=== PATIENT | male | born 1990 | race Caucasian/White ===

== ENCOUNTER 2016-07-31 14:51 | Inpatient (IN) | payer OTHER ==
[2016-07-31 16:28] VITALS: BMI 34.0
--- NOTE | 2016-07-31 18:32 | HP ---
CIWA Score - CIWA Score Nausea/Vomitin Muscle Tremors: 5 Anxiety: 4-Mod. Anxious/Guarded Agitation: 4-Moderately Restless Paroxysmal Sweats: 2 Orientation: 0-Oriented Tacttile Disturbances: 0-None Auditory Disturbances: 0-None Visual Disturbances: 3-Moderate Sensitivity Headache: 0-None Present CIWA-Ar Total Score: 20 Admission ROS BHS - HPI Chief Complaint: WITHDRAWAL SX Allergies/Adverse Reactions: Allergies Allergy/AdvReac Type Severity Reaction Status Date / Time No Known Allergies Allergy Verified 07/31/16 16:56 History of Present Illness: 26 YEARS OLD MALE WITH LONG HISTORY OF ALCOHOL XANAX KLONOPIN NICOTINE DEPENDENCE, SEIZURE AND ANXIETY IS ADMITTED TO DETOX Exam Limitations: No Limitations - Ebola screening Have you traveled outside of the country in the last 21 days: No Have you had contact with anyone from an Ebola affected area: No Have you been sick,other than usual withdrawal symptoms: No Do you have a fever: No - Review of Systems Constitutional: Chills, Changes in sleep, Weight Stable EENT: reports: No Symptoms Reported Respiratory: reports: SOB with Exertion Cardiac: reports: No Symptoms Reported GI: reports: Nausea, Poor Fluid Intake, Abdominal cramping : reports: No Symptoms Reported Musculoskeletal: reports: Back Pain, Joint Pain, Muscle Pain, Neck Pain Integumentary: reports: No Symptoms Reported Neuro: reports: Seizure (07/29/16 TREATED AT [facility]), Tremors Endocrine: reports: No Symptoms Reported Hematology: reports: No Symptoms Reported Psychiatric: reports: Judgement Intact, Orientated x3, Anxious Other Systems: Reviewed and Negative Patient History - Patient Medical History Hx Anemia: No Hx Asthma: No Hx Chronic Obstructive Pulmonary Disease (COPD): No Hx Cancer: No Hx Cardiac Disorders: No Hx Congestive Heart Failure: No Hx Hypertension: No Hx Hypercholesterolemia: No Hx Pacemaker: No HX Cerebrovascular Accident: No Hx Seizures: Yes Hx Dementia: No Hx Diabetes: No Hx Gastrointestinal Disorders: No Hx Liver Disease: No Hx Genitourinary Disorders: No Hx Sexually Transmitted Disorders: No Hx Renal Disease (ESRD): No Hx Thyroid Disease: No Hx Human Immunodeficiency Virus (HIV): No Hx Hepatitis C: No Hx Depression: Yes Hx Suicide Attempt: No Hx Bipolar Disorder: No Hx Schizophrenia: No - Patient Surgical History Past Surgical History: Yes Hx Neurologic Surgery: No Hx Cataract Extraction: No Hx Cardiac Surgery: No Hx Lung Surgery: No Hx Breast Surgery: No Hx Breast Biopsy: No Hx Abdominal Surgery: No Hx Appendectomy: No Hx Cholecystectomy: No Hx Genitourinary Surgery: No Hx Orthopedic Surgery: No Other Surgical History: TONSILECTOMY- @ 8YRS Anesthesia Reaction: No - PPD History Previous Implant?: Yes Documented Results: Negative w/o proof Implanted On Prior [facility] Admission?: No PPD to be Administered?: Yes - Smoking Cessation Smoking history: Current every day smoker Have you smoked in the past 12 months: Yes Aproximately how many cigarettes per day: 20 Cigars Per Day: 0 Hx Chewing Tobacco Use: No Initiated information on smoking cessation: Yes 'Breaking Loose' booklet given: 07/31/16 - Substance & Tx. History Hx Alcohol Use: Yes Hx Substance Use: Yes Substance Use Type: Alcohol, Cocaine, Marijuana, Opiates, Tranquilizers Hx Substance Use Treatment: Yes - Substances Abused Alcohol Route: Oral Frequency: Daily Amount used: LIQUOR- 1 PINT VOLKA, BEER- 2 PINTS Age of first use: 17 Date of Last Use: 07/31/16 Alprazolam (Xanax) Route: Oral Frequency: Daily Amount used: 10-20 MG Age of first use: 19 Date of Last Use: 07/30/16 Family Disease History - Family Disease History Family History: Unremarkable Admission Physical Exam S - Vital Signs Vital Signs: Vital Signs - 24 hr 07/31/16 16:25 Temperature 96.9 F L Pulse Rate 73 Respiratory 20 Rate Blood Pressure 92/54 - Physical General Appearance: Yes: Appropriately Dressed, Moderate Distress, Obese, Tremorous, Irritable, Sweating, Anxious HEENTM: Yes: Hearing grossly Normal, Normal ENT Inspection, Normocephalic, Normal Voice Respiratory: Yes: Chest Non-Tender, Lungs Clear, Normal Breath Sounds, No Respiratory Distress, No Accessory Muscle Use Neck: Yes: Supple, Trachea in good position Breast: Yes: Breasts Symetrical Cardiology: Yes: Regular Rhythm, Regular Rate, S1, S2 Abdominal: Yes: Non Tender, Soft Genitourinary: Yes: Within Normal Limits Back: Yes: Normal Inspection Musculoskeletal: Yes: full range of Motion, Gait Steady, Muscle Pain (SEIZURE EPISODE 07/29/16) Extremities: Yes: Normal Inspection, Normal Range of Motion, Non-Tender, Tremors Neurological: Yes: Fully Oriented, Alert, Motor Strength 5/5, Normal Response, Depressed Affect Integumentary: Yes: Warm, Clammy Lymphatic: Yes: Within Normal Limits - Diagnostic (1) Alcohol dependence with uncomplicated withdrawal Current Visit: Yes Status: Acute (2) Sedative, hypnotic or anxiolytic dependence with withdrawal, uncomplicated Current Visit: Yes Status: Acute (3) Methadone maintenance therapy patient Current Visit: Yes Status: Acute Comment: 200 MG VERIFICAITON PENDING (4) Nicotine dependence Current Visit: Yes Status: Acute Qualifiers: Nicotine product type: cigarettes Substance use status: in withdrawal Qualified Code(s): F17.213 - Nicotine dependence, cigarettes, with withdrawal (5) Seizure Current Visit: Yes Status: Inactive Comment: ALCOHOL + XANAX WITHDRAWAL RELATED SEIZURE (6) Anxiety with depression Current Visit: Yes Status: Suspected Comment: EFFEXOR Cleared for Admission [facility] - Detox or Rehab [facility] Level of Care: Medically Managed Detox Regimen/Protocol: Valium [facility] Breath Alcohol Content Breath Alcohol Content: 0 Urine Drug Screen - Results Drug Screen Negative: No Urine Drug Screen Results: THC-Marijuana, SIERRA-Cocaine, OPI-Opiates, BZO- Benzodiazepines, MTD-Methadone
[2016-07-31] MEDS ORDERED: diazePAM 5 MG TABLET PO ONE (18:40)
[2016-07-31] MEDS ORDERED: LOPERAMIDE HCL 2 MG CAPSULE PO PRN (18:40)
[2016-07-31] MEDS ORDERED: IBUPROFEN 400 MG TABLET (FP) PO PRN (18:40)
[2016-07-31] MEDS ORDERED: MAGNESIUM HYDROX 2400MG/30ML ORAL SUSPENSION 30 ML CUP PO PRN (18:40)
[2016-07-31] MEDS ORDERED: MENTHOL/PHENOL 1 EACH UD MM PRN (18:40)
[2016-07-31] MEDS ORDERED: MAGNESIUM CITRATE 300 ML BOTTLE PO PRN (18:40)
[2016-07-31] MEDS ORDERED: guaiFENesin/D-METHORPHAN HB 10 ML UNIT-DOSE CUPS PO PRN (18:40)
[2016-07-31] MEDS ORDERED: ACETAMINOPHEN 325 MG TABLET (FP) PO PRN (18:40)
[2016-07-31] MEDS ORDERED: P-EPHED 60MG/TRIPROLIDI 2.5MG TABLET PO PRN (18:40)
[2016-07-31] MEDS: diazePAM 5 MG TABLET PO SCH (22:14)
[2016-07-31] MEDS: diphenhydrAMINE HCL 50 MG CAPSULE PO PRN (22:14)
[2016-07-31] MEDS: CYCLOBENZAPRINE HCL 10 MG TABLET (FP) PO SCH (22:14)
[2016-07-31] MEDS: THIAMINE HCL 100 MG TABLET (FP) PO SCH (22:14)
[2016-07-31] MEDS: NICOTINE POLACRILEX 4 MG GUM BUC PRN (22:40)
[2016-07-31 22:51] LABS: URINE APPEARANCE CLEAR; URINE BILIRUBIN NEGATIVE (NEGATIVE); URINE BLOOD NEGATIVE (NEGATIVE); URINE COLOR YELLOW; URINE GLUCOSE (UA) NEGATIVE (NEGATIVE); URINE KETONE NEGATIVE (NEGATIVE); URINE NITRITE NEGATIVE (NEGATIVE); URINE PROTEIN NEGATIVE (NEGATIVE); URINE UROBILINOGEN NEGATIVE E.U./dl (0.2-1.0)
[2016-07-31 22:56] LABS: URINE LEUK ESTERASE TRACE (NEGATIVE)
[2016-07-31 22:59] LABS: URINE MUCUS RARE; URINE RBC <1 /hpf (0-3)
[2016-08-01] MEDS: CYCLOBENZAPRINE HCL 10 MG TABLET (FP) PO SCH ×3 (05:25→22:50)
[2016-08-01] MEDS: diazePAM 5 MG TABLET PO SCH ×3 (05:25→22:50)
--- NOTE | 2016-08-01 08:01 | CONSULT ---
[facility] Psychiatric Consult - Data Date of interview: 08/01/16 Admission source: [facility] Identifying data: This is 26 years old obese male with no psychiatric hospitalization history intoxicated with: Opioids, Alcohol, Xanax and Nicotine Substance Abuse History: - Smoking Cessation. Smoking history: Current every day smoker. Have you smoked in the past 12 months: Yes. Aproximately how many cigarettes per day: 20. Cigars Per Day: 0. Hx Chewing Tobacco Use: No. Initiated information on smoking cessation: Yes. 'Breaking Loose' booklet given : 07/31/16. - Substance & Tx. History. Hx Alcohol Use: Yes. Hx Substance Use : Yes. Substance Use Type: Alcohol, Cocaine, Marijuana, Opiates, Tranquilizers. Hx Substance Use Treatment: Yes. - Substances Abused. Alcohol. Route: Oral. Frequency: Daily. Amount used: LIQUOR- 1 PINT VOLKA, BEER- 2 PINTS. Age of first use: 17. Date of Last Use: 07/31/16. Alprazolam (Xanax). Route: Oral. Frequency: Daily. Amount used: 10-20 MG. Age of first use: 19. Date of Last Use: 07/30/16 Medical History: Obesity , MMTP 200mg per day Psychiatric History: Patient reprots hisatory of depression and anxiety, reports no medications taking prirotmo admission. Currently on Methadone 200mg/ day Physical/Sexual Abuse/Trauma History: Denies Additional Comment: Observation. Methadone 200mg poqd Mental Status Exam - Mental Status Exam Alert and Oriented to: Person Cognitive Function: Fair Patient Appearance: Unkempt Mood: Withdrawn Affect: Mood Congruent Patient Behavior: Cooperative Speech Pattern: Appropriate Voice Loudness: Mildly Soft/Quiet Thought Process: Goal Oriented Thought Disorder: Being Controlled Hallucinations: Denies Suicidal Ideation: Denies Homicidal Ideation: Denies Insight/Judgement: Fair Sleep: Difficulty falling asleep Appetite: Weight gain Muscle strength/Tone: Normal Gait/Station: Normal Additional Comments: Observation. Methadone 200mg poqd Psychiatric Findings - Problem List ([place] 1, 2,3) (1) Alcohol dependence with uncomplicated withdrawal Current Visit: Yes Status: Acute (2) Methadone maintenance therapy patient Current Visit: Yes Status: Acute Comment: 200 MG VERIFICAITON PENDING (3) Nicotine dependence Current Visit: Yes Status: Acute Qualifiers: Nicotine product type: cigarettes Substance use status: in withdrawal Qualified Code(s): F17.213 - Nicotine dependence, cigarettes, with withdrawal (4) Sedative, hypnotic or anxiolytic dependence with withdrawal, uncomplicated Current Visit: Yes Status: Acute (5) Anxiety with depression Current Visit: Yes Status: Suspected Comment: EFFEXOR (6) Drug-induced mood disorder Current Visit: Yes Status: Acute - Initial Treatment Plan Initial Treatment Plan: Observation. Methadone 200mg poqd
[2016-08-01] MEDS: NICOTINE POLACRILEX 4 MG GUM BUC PRN ×4 (08:04→17:31)
[2016-08-01] MEDS ORDERED: METHADONE HCL 40 MG DISPERSABLE TABLET PO ONE (09:30)
--- NOTE | 2016-08-01 09:51 | PN ---
S CIWA - CIWA Score Nausea/Vomitin-Mild Nausea/No Vomiting Muscle Tremors: 4-Moderate,w/Arms Extend Anxiety: 3 Agitation: 4-Moderately Restless Paroxysmal Sweats: 3 Orientation: 0-Oriented Tacttile Disturbances: 0-None Auditory Disturbances: 0-None Visual Disturbances: 0-None Headache: 1-Very Mild CIWA-Ar Total Score: 16 [facility] Progress Note (SOAP) Subjective: sweats interrupted sleep irritable agitation nausea headache Objective: 08/01/16 09:49 Vital Signs Temperature 98.3 F L 08/01/16 10:00 Pulse Rate 72 08/01/16 10:00 Respiratory Rate 20 08/01/16 10:00 Blood Pressure 108/78 08/01/16 10:00 O2 Sat by Pulse Oximetry (%) Laboratory Tests 07/31/16 22:41 Urine Color Yellow Urine Appearance Clear Urine pH 5.0 Ur Specific [place] 1.012 Urine Protein Negative Urine Glucose (UA) Negative Urine Ketones Negative Urine Blood Negative Urine Nitrite Negative Urine Bilirubin Negative Urine Urobilinogen Negative Ur Leukocyte Esterase Trace H Urine RBC <1 Urine WBC None Ur Epithelial Cells Rare Urine Mucus Rare labs pending awake/alert ambulating no acute distress Assessment: 08/01/16 09:51 withdrawal sx Plan: continue detox increase fluids tigan po prn labs pending
[2016-08-01 10:09] LABS: MEAN PLT VOLUME 8.5 fl (7.5-11.1); PLATELET COUNT 214 K/MM3 (134-434); RDW 12.9 % (11.9-15.9); WHITE BLOOD COUNT 8.2 K/mm3 (4.0-10.0)
[2016-08-01] MEDS: PRENATAL VITAMINS W/ FOLIC ACID TABLET (FP) PO SCH (10:33)
[2016-08-01] MEDS: diazePAM 5 MG TABLET PO PRN ×2 (10:37→17:33)
[2016-08-01 10:47] LABS: ALBUMIN 3.3 g/dl (3.4-5.0); ALK PHOS 57 U/L (45-117); ANION GAP 7 (8-16); BILIRUBIN,TOTAL 0.2 mg/dL (0.2-1.0); CALCIUM 8.7 mg/dL (8.5-10.1); CO2 29 mmol/L (21-32); GLUCOSE,RANDOM 94 mg/dL (74-106); SGOT/AST 10 U/L (15-37); SGPT/ALT 23 U/L (12-78); TOT PROT 5.9 g/dl (6.4-8.2)
--- NOTE | 2016-08-01 11:05 | EKG ---
Test Reason : Blood Pressure : / mmHG Vent. Rate : 065 BPM Atrial Rate : 065 BPM P-R Int : 156 ms QRS Dur : 094 ms QT Int : 452 ms P-R-T Axes : 039 075 050 degrees QTc Int : 470 ms NORMAL SINUS RHYTHM NORMAL ECG NO PREVIOUS ECGS AVAILABLE Confirmed by PAIGE SWEET, ERIN ([id number]) on 08/01/2016 11:05:06 AM Referred By: Confirmed By:ERIN GIBSON MD
[2016-08-01] MEDS: diphenhydrAMINE HCL 50 MG CAPSULE PO PRN (22:50)
[2016-08-01] MEDS: THIAMINE HCL 100 MG TABLET (FP) PO SCH (22:50)
[2016-08-02] MEDS: diazePAM 5 MG TABLET PO PRN ×4 (01:41→18:00)
[2016-08-02] MEDS: MAG HYDROX/AL HYDROX/SIMETH 30 ML UNIT-DOSE CUP PO PRN ×2 (01:42→11:51)
[2016-08-02] MEDS: CYCLOBENZAPRINE HCL 10 MG TABLET (FP) PO SCH ×3 (05:27→22:11)
[2016-08-02] MEDS: METHADONE HCL 40 MG DISPERSABLE TABLET PO SCH (05:27)
[2016-08-02] MEDS: PRENATAL VITAMINS W/ FOLIC ACID TABLET (FP) PO SCH (10:23)
[2016-08-02] MEDS: diazePAM 5 MG TABLET PO SCH ×2 (10:23→22:11)
--- NOTE | 2016-08-02 11:12 | PN ---
[facility] CIWA - CIWA Score Nausea/Vomitin Muscle Tremors: 2 Anxiety: 3 Agitation: 3 Paroxysmal Sweats: 3 Orientation: 0-Oriented Tacttile Disturbances: 1-Very Mild Itch/Numbness Auditory Disturbances: 0-None Visual Disturbances: 0-None Headache: 0-None Present CIWA-Ar Total Score: 14 [facility] Progress Note (SOAP) Subjective: interrupted sleep, sweats, nausea, bodyaches, no cough , sob , abd. pain Objective: 08/02/16 11:08 Vital Signs Temperature 97.9 F 08/02/16 09:38 Pulse Rate 82 08/02/16 09:38 Respiratory Rate 18 08/02/16 09:38 Blood Pressure 131/69 08/02/16 09:38 O2 Sat by Pulse Oximetry (%) Laboratory Tests 07/31/16 08/01/16 08/01/16 22:41 07:00 07:00 WBC 8.2 RBC 4.61 Hgb 13.8 Hct 41.9 MCV 91.0 MCHC 33.0 RDW 12.9 Plt Count 214 MPV 8.5 Sodium 143 Potassium 4.0 Chloride 107 Carbon Dioxide 29 Anion Gap 7 L BUN 12 Creatinine 1.0 Creat Clearance w eGFR > 60 Random Glucose 94 Calcium 8.7 Total Bilirubin 0.2 AST 10 L ALT 23 Alkaline Phosphatase 57 Total Protein 5.9 L Albumin 3.3 L Urine Color Yellow Urine Appearance Clear Urine pH 5.0 Ur Specific [place] 1.012 Urine Protein Negative Urine Glucose (UA) Negative Urine Ketones Negative Urine Blood Negative Urine Nitrite Negative Urine Bilirubin Negative Urine Urobilinogen Negative Ur Leukocyte Esterase Trace H Urine RBC <1 Urine WBC None Ur Epithelial Cells Rare Urine Mucus Rare RPR Titer 08/01/16 07:00 WBC RBC Hgb Hct MCV MCHC RDW Plt Count MPV Sodium Potassium Chloride Carbon Dioxide Anion Gap BUN Creatinine Creat Clearance w eGFR Random Glucose Calcium Total Bilirubin AST ALT Alkaline Phosphatase Total Protein Albumin Urine Color Urine Appearance Urine pH Ur Specific [place] Urine Protein Urine Glucose (UA) Urine Ketones Urine Blood Urine Nitrite Urine Bilirubin Urine Urobilinogen Ur Leukocyte Esterase Urine RBC Urine WBC Ur Epithelial Cells Urine Mucus RPR Titer Nonreactive pt aox3 in nad lying in bed skin w/o rash , redness oral -clear w/o exudates lung -coarse bs kishor cor -rrr, no n ,r or gallop abd -no cars, obese soft nontender , bs_ neuro aox3 w/o deficitis 08/02/16 11:11 08/02/16 11:12 ppd, nr 0.0 Assessment: 08/02/16 11:11 withdrawal sx;s fever , bodyaches ? viral synd . 08/02/16 11:12 Plan: cont. detox increase fluids cxr
[2016-08-02] MEDS: NICOTINE POLACRILEX 4 MG GUM BUC PRN (13:50)
[2016-08-02] MEDS: diphenhydrAMINE HCL 50 MG CAPSULE PO PRN (22:11)
[2016-08-02] MEDS: THIAMINE HCL 100 MG TABLET (FP) PO SCH (22:11)
[2016-08-03] MEDS: diphenhydrAMINE HCL 50 MG CAPSULE PO PRN ×2 (00:39→22:37)
[2016-08-03] MEDS: diazePAM 5 MG TABLET PO PRN ×4 (00:39→16:57)
[2016-08-03] MEDS: CYCLOBENZAPRINE HCL 10 MG TABLET (FP) PO SCH ×2 (05:36→22:36)
[2016-08-03] MEDS: METHADONE HCL 40 MG DISPERSABLE TABLET PO SCH (05:37)
[2016-08-03] MEDS: NICOTINE 21 MG/24 HOURS TOPICAL PATCH TD PRN (10:36)
[2016-08-03] MEDS: diazePAM 5 MG TABLET PO SCH ×2 (10:36→22:37)
[2016-08-03] MEDS: PRENATAL VITAMINS W/ FOLIC ACID TABLET (FP) PO SCH (10:36)
--- NOTE | 2016-08-03 13:25 | PN ---
S Progress Note (SOAP) Subjective: ALERT,IRRITABLE,ANXIOUS,INTERRUPTED SLEEP Objective: 08/03/16 13:24 Vital Signs Temperature 97.2 F L 08/03/16 10:28 Pulse Rate 86 08/03/16 10:28 Respiratory Rate 18 08/03/16 10:28 Blood Pressure 127/80 08/03/16 10:28 O2 Sat by Pulse Oximetry (%) Assessment: 08/03/16 13:24 WITHDRAWAL SYMPTOM Plan: CONTINUE DETOX,DISCHARGE IN AM
[2016-08-03] MEDS: THIAMINE HCL 100 MG TABLET (FP) PO SCH (22:37)
[2016-08-04] MEDS: diphenhydrAMINE HCL 50 MG CAPSULE PO PRN (02:51)
[2016-08-04] MEDS: CYCLOBENZAPRINE HCL 10 MG TABLET (FP) PO SCH (05:20)
[2016-08-04] MEDS: METHADONE HCL 40 MG DISPERSABLE TABLET PO SCH (05:20)
--- NOTE | 2016-08-04 09:42 | PN ---
S Progress Note (SOAP) Subjective: ALERT,NO COMPLAINT Objective: 08/04/16 09:33 Vital Signs Temperature 97.9 F 08/04/16 06:00 Pulse Rate 70 08/04/16 06:00 Respiratory Rate 18 08/04/16 06:00 Blood Pressure 108/64 08/04/16 06:00 O2 Sat by Pulse Oximetry (%) Assessment: 08/04/16 09:33 DETOX COMPLETED,NO WITHDRAWAL SYMPTOM Plan: DISCHARGE TODAY,FOLLOW UP WITH AFTER CARE PROGRAM ARRANGEMENT
--- NOTE | 2016-08-04 09:47 | DS ---
[facility] Detox Discharge Summary Admission Date: 07/31/16 Discharge Date: 08/04/16 - History Present History: Alcohol Dependence, Sedative Dependence, MMTP Additional Comments: FOLLOW UP WITH AFTER CARE PROGRAM ARRANGEMENT [facility] Pertinent Past History: NICOTINE DEPENDENCE SEIZURE ANXIETY AND DEPRESSION - Physical Exam Results Vital Signs: Vital Signs Temperature 97.9 F 08/04/16 06:00 Pulse Rate 70 08/04/16 06:00 Respiratory Rate 18 08/04/16 06:00 Blood Pressure 108/64 08/04/16 06:00 O2 Sat by Pulse Oximetry (%) Pertinent Admission Physical Exam Findings: WITHDRAWAL SYMPTOM - Treatment Hospital Course: Detox Protocol Followed, Detoxed Safely, Responded well, Discharged Condition Good Patient has Accepted a Rehab Referral to: [facility] - Medication Discharge Medications: Ambulatory Orders NK [No Known Home Medication] 07/31/16 - Diagnosis (1) Alcohol dependence with uncomplicated withdrawal Current Visit: Yes Status: Acute (2) Methadone maintenance therapy patient Current Visit: Yes Status: Acute (3) Nicotine dependence Current Visit: Yes Status: Acute Qualifiers: Nicotine product type: cigarettes Substance use status: in withdrawal Qualified Code(s): F17.213 - Nicotine dependence, cigarettes, with withdrawal (4) Sedative, hypnotic or anxiolytic dependence with withdrawal, uncomplicated Current Visit: Yes Status: Acute (5) Anxiety with depression Current Visit: Yes Status: Suspected (6) Seizure Current Visit: Yes Status: Inactive - AMA Did Patient Leave Against Medical Advice: No
[2016-08-04] MEDS ORDERED: diazePAM 5 MG TABLET PO SCH (10:00)
[2016-08-04] MEDS: PRENATAL VITAMINS W/ FOLIC ACID TABLET (FP) PO SCH (10:03)
[2016-08-04 10:04] VITALS: BP 110/70; PULSE 80; TEMP 96.8
[2016-08-04] MEDS: NICOTINE POLACRILEX 4 MG GUM BUC PRN (10:13)
[2016-08-04] MEDS: NICOTINE 21 MG/24 HOURS TOPICAL PATCH TD PRN (10:13)
== END 2016-08-04 12:05 | disposition other institution (70) | DRG 773 ==
LOC: YASAS 14:51 → Y6N 18:07
PROVIDERS: ADMIT Internal Medicine Addiction Medicine; ATTEND Internal Medicine Addiction Medicine
PROC: HZ2ZZZZ Detoxification Services for Substance Abuse Treatment (ICD-10-PCS; principal; 2016-08-04)
DX: F11.20 Opioid dependence, uncomplicated (principal); F13.230 Sedative, hypnotic or anxiolytic dependence with withdrawal, uncomplicated; F10.230 Alcohol dependence with withdrawal, uncomplicated; F17.213 Nicotine dependence, cigarettes, with withdrawal; F41.8 Other specified anxiety disorders; F19.24 Other psychoactive substance dependence with psychoactive substance-induced mood disorder; G40.909 Epilepsy, unspecified, not intractable, without status epilepticus
CPT/HCPCS: 36415; 71020-TC; 80053; 81003; 81015; 85027; 86593; 93005; 93010

== ENCOUNTER 2016-08-04 12:38 | Inpatient (IN) | payer OTHER ==
[2016-08-04] MEDS ORDERED: guaiFENesin/D-METHORPHAN HB 10 ML UNIT-DOSE CUPS PO PRN (14:07)
[2016-08-04] MEDS ORDERED: LOPERAMIDE HCL 2 MG CAPSULE PO PRN (14:07)
[2016-08-04] MEDS ORDERED: MENTHOL/PHENOL 1 EACH UD MM PRN (14:07)
[2016-08-04] MEDS ORDERED: P-EPHED 60MG/TRIPROLIDI 2.5MG TABLET PO PRN (14:07)
[2016-08-04] MEDS ORDERED: MAG HYDROX/AL HYDROX/SIMETH 30 ML UNIT-DOSE CUP PO PRN (14:07)
[2016-08-04] MEDS ORDERED: MAGNESIUM HYDROX 2400MG/30ML ORAL SUSPENSION 30 ML CUP PO PRN (14:07)
[2016-08-04] MEDS ORDERED: MAGNESIUM CITRATE 300 ML BOTTLE PO PRN (14:07)
--- NOTE | 2016-08-04 14:09 | HP ---
[facility] Rehab Assess/Revision - Admission History Admitted to Rehab from: [facility] [address] [place] Date of Admission to Rehab: 08/04/16 - Vital signs Vital Signs: Vital Signs Period Temp Pulse Resp BP Sys/Martin Pulse Ox Last 24 Hr 98.2 F 88 20 135/81 - Findings Detox History & Physical reviewed: Yes Concur with findings: Yes
[2016-08-04] MEDS: THIAMINE HCL 100 MG TABLET (FP) PO SCH (21:45)
[2016-08-04] MEDS: hydrOXYzine PAMOATE 50 MG CAPSULE (FP) PO PRN (21:46)
[2016-08-04] MEDS ORDERED: diphenhydrAMINE HCL 50 MG CAPSULE PO PRN (22:00)
[2016-08-05] MEDS: METHADONE HCL 40 MG DISPERSABLE TABLET PO SCH (05:58)
[2016-08-05] MEDS: PRENATAL VITAMINS W/ FOLIC ACID TABLET (FP) PO SCH (10:35)
[2016-08-05] MEDS: IBUPROFEN 400 MG TABLET (FP) PO PRN (10:36)
[2016-08-05] MEDS: hydrOXYzine PAMOATE 50 MG CAPSULE (FP) PO PRN ×2 (10:36→21:36)
[2016-08-05] MEDS: NICOTINE 21 MG/24 HOURS TOPICAL PATCH TD SCH (10:37)
[2016-08-05] MEDS: NICOTINE POLACRILEX 4 MG GUM BUC PRN ×2 (10:38→17:47)
[2016-08-05 12:03] LABS: HIV 1 & 2 AB NEGATIVE; HIV 1 AGp24 NEGATIVE
[2016-08-05] MEDS: THIAMINE HCL 100 MG TABLET (FP) PO SCH (21:36)
[2016-08-06] MEDS: IBUPROFEN 400 MG TABLET (FP) PO PRN (03:38)
[2016-08-06] MEDS: METHADONE HCL 40 MG DISPERSABLE TABLET PO SCH (06:06)
[2016-08-06] MEDS: PRENATAL VITAMINS W/ FOLIC ACID TABLET (FP) PO SCH (10:06)
[2016-08-06] MEDS: NICOTINE 21 MG/24 HOURS TOPICAL PATCH TD SCH (10:06)
[2016-08-06] MEDS: NICOTINE POLACRILEX 4 MG GUM BUC PRN ×2 (10:07→22:01)
--- NOTE | 2016-08-06 11:57 | HP ---
Psychiatrist Admission - Data Date of interview: 08/06/16 Admission source: [facility] Identifying data: This is the first inpatient rehabilitation admission for this 26 year old single white male who is currently unemployed and homeless Medical History: Reports drug related seizure 2 days prior to admission to detox. Smokes cigarettes 1 PPD.On MMTP 200 mg po daily. Psychiatric History: Patient denies history of psychiatric treatment, but reports was prescribed Clonozepam, theeen he started abusing Xanax. Physical/Sexual Abuse/Trauma History: Denies history of sexual, physical and verbal abuse. Vital Signs: Vital Signs - 24 hr 08/06/16 08/06/16 08/06/16 00:30 03:30 07:21 Temperature 97.3 F L Pulse Rate 80 Respiratory 16 16 18 Rate Blood Pressure 100/63 Allergies/Adverse Reactions: Allergies Allergy/AdvReac Type Severity Reaction Status Date / Time No Known Allergies Allergy Verified 08/04/16 14:02 Concur with the findings of this exam: Yes - Substance Abuse/Tx History Hx Alcohol Use: Yes (6 pack/1 pint of vodka) Hx Substance Use: Yes Substance Use Type: Cocaine (IV use every other day and smoking $200 daily), Tranquilizers ([id number]=1 mg daily) Hx Substance Use Treatment: Yes - Admission Criteria Previous failed treatment: Yes Poor recovery environment: Yes Comorbidities: No Lacks judgement: Yes Mental Status Exam - Mental Status Exam Alert and Oriented to: Time, Place, Person Cognitive Function: Grossly Intact Patient Appearance: Well Groomed Affect: Appropriate, Mood Congruent Patient Behavior: Appropriate, Cooperative Speech Pattern: Clear, Appropriate Voice Loudness: Normal Thought Process: Intact, Goal Oriented Thought Disorder: Not Present Hallucinations: Denies Suicidal Ideation: Denies Homicidal Ideation: Denies Insight/Judgement: Fair Sleep: Fair Appetite: Good Muscle strength/Tone: Normal Gait/Station: Normal Psychiatric Findings - Problem List ([place] 1, 2,3) (1) Methadone maintenance therapy patient Current Visit: No Status: Acute Comment: 200 MG VERIFICAITON PENDING (2) Nicotine dependence Current Visit: No Status: Acute Qualifiers: Nicotine product type: cigarettes Substance use status: in withdrawal Qualified Code(s): F17.213 - Nicotine dependence, cigarettes, with withdrawal (3) Sedative, hypnotic or anxiolytic dependence Current Visit: Yes Status: Acute (4) Cocaine dependence Current Visit: Yes Status: Acute - Initial Treatment Plan Initial Treatment Plan: will monitor progress as needed.
[2016-08-06] MEDS: hydrOXYzine PAMOATE 50 MG CAPSULE (FP) PO PRN (22:00)
[2016-08-06] MEDS: THIAMINE HCL 100 MG TABLET (FP) PO SCH (22:00)
[2016-08-07] MEDS: METHADONE HCL 40 MG DISPERSABLE TABLET PO SCH (06:08)
[2016-08-07] MEDS: PRENATAL VITAMINS W/ FOLIC ACID TABLET (FP) PO SCH (09:40)
[2016-08-07] MEDS: NICOTINE 21 MG/24 HOURS TOPICAL PATCH TD SCH (09:40)
[2016-08-07] MEDS: NICOTINE POLACRILEX 4 MG GUM BUC PRN ×3 (09:42→23:58)
[2016-08-07] MEDS: THIAMINE HCL 100 MG TABLET (FP) PO SCH (21:31)
[2016-08-07] MEDS: hydrOXYzine PAMOATE 50 MG CAPSULE (FP) PO PRN (21:31)
[2016-08-08] MEDS: METHADONE HCL 40 MG DISPERSABLE TABLET PO SCH (06:11)
[2016-08-08] MEDS: PRENATAL VITAMINS W/ FOLIC ACID TABLET (FP) PO SCH (10:22)
[2016-08-08] MEDS: NICOTINE 21 MG/24 HOURS TOPICAL PATCH TD SCH (10:22)
[2016-08-08] MEDS: hydrOXYzine PAMOATE 50 MG CAPSULE (FP) PO PRN ×2 (10:24→21:32)
[2016-08-08] MEDS: NICOTINE POLACRILEX 4 MG GUM BUC PRN ×3 (10:24→21:32)
[2016-08-08] MEDS ORDERED: RANITIDINE HCL 150 MG TABLET (FP) PO ONE (13:10)
[2016-08-08] MEDS: RANITIDINE HCL 150 MG TABLET (FP) PO SCH (21:32)
[2016-08-08] MEDS: THIAMINE HCL 100 MG TABLET (FP) PO SCH (21:32)
[2016-08-09] MEDS: NICOTINE POLACRILEX 4 MG GUM BUC PRN ×5 (06:08→23:39)
[2016-08-09] MEDS: METHADONE HCL 40 MG DISPERSABLE TABLET PO SCH (06:08)
[2016-08-09] MEDS: NICOTINE 21 MG/24 HOURS TOPICAL PATCH TD SCH (10:28)
[2016-08-09] MEDS: RANITIDINE HCL 150 MG TABLET (FP) PO SCH ×2 (10:28→21:32)
[2016-08-09] MEDS: PRENATAL VITAMINS W/ FOLIC ACID TABLET (FP) PO SCH (10:28)
[2016-08-09] MEDS: hydrOXYzine PAMOATE 50 MG CAPSULE (FP) PO PRN ×3 (10:29→21:32)
[2016-08-09] MEDS: THIAMINE HCL 100 MG TABLET (FP) PO SCH (21:32)
[2016-08-09] MEDS: ACETAMINOPHEN 325 MG TABLET (FP) PO PRN (21:34)
[2016-08-10] MEDS: METHADONE HCL 40 MG DISPERSABLE TABLET PO SCH (06:03)
[2016-08-10] MEDS: NICOTINE POLACRILEX 4 MG GUM BUC PRN ×3 (06:04→21:28)
[2016-08-10] MEDS: NICOTINE 21 MG/24 HOURS TOPICAL PATCH TD SCH (10:34)
[2016-08-10] MEDS: RANITIDINE HCL 150 MG TABLET (FP) PO SCH ×2 (10:34→21:28)
[2016-08-10] MEDS: PRENATAL VITAMINS W/ FOLIC ACID TABLET (FP) PO SCH (10:34)
[2016-08-10] MEDS: hydrOXYzine PAMOATE 50 MG CAPSULE (FP) PO PRN ×2 (10:34→21:27)
[2016-08-10] MEDS: ACETAMINOPHEN 325 MG TABLET (FP) PO PRN (21:26)
[2016-08-10] MEDS: THIAMINE HCL 100 MG TABLET (FP) PO SCH (21:27)
[2016-08-11] MEDS: METHADONE HCL 40 MG DISPERSABLE TABLET PO SCH (06:09)
[2016-08-11] MEDS: NICOTINE POLACRILEX 4 MG GUM BUC PRN ×5 (06:13→22:54)
[2016-08-11] MEDS: PRENATAL VITAMINS W/ FOLIC ACID TABLET (FP) PO SCH (10:22)
[2016-08-11] MEDS: RANITIDINE HCL 150 MG TABLET (FP) PO SCH ×2 (10:22→21:23)
[2016-08-11] MEDS: NICOTINE 21 MG/24 HOURS TOPICAL PATCH TD SCH (10:35)
[2016-08-11] MEDS: hydrOXYzine PAMOATE 50 MG CAPSULE (FP) PO PRN (21:23)
[2016-08-11] MEDS: THIAMINE HCL 100 MG TABLET (FP) PO SCH (21:23)
[2016-08-12] MEDS: METHADONE HCL 40 MG DISPERSABLE TABLET PO SCH (06:16)
[2016-08-12] MEDS: NICOTINE POLACRILEX 4 MG GUM BUC PRN ×5 (06:18→23:45)
[2016-08-12] MEDS: PRENATAL VITAMINS W/ FOLIC ACID TABLET (FP) PO SCH (10:27)
[2016-08-12] MEDS: NICOTINE 21 MG/24 HOURS TOPICAL PATCH TD SCH (10:28)
[2016-08-12] MEDS: RANITIDINE HCL 150 MG TABLET (FP) PO SCH ×2 (10:28→21:30)
[2016-08-12] MEDS: hydrOXYzine PAMOATE 50 MG CAPSULE (FP) PO PRN ×2 (10:29→21:30)
[2016-08-12] MEDS: THIAMINE HCL 100 MG TABLET (FP) PO SCH (21:30)
[2016-08-13] MEDS: METHADONE HCL 40 MG DISPERSABLE TABLET PO SCH (06:04)
[2016-08-13] MEDS: NICOTINE POLACRILEX 4 MG GUM BUC PRN ×4 (06:06→20:54)
[2016-08-13] MEDS: RANITIDINE HCL 150 MG TABLET (FP) PO SCH ×2 (10:22→21:47)
[2016-08-13] MEDS: NICOTINE 21 MG/24 HOURS TOPICAL PATCH TD SCH (10:22)
[2016-08-13] MEDS: PRENATAL VITAMINS W/ FOLIC ACID TABLET (FP) PO SCH (10:22)
[2016-08-13] MEDS: hydrOXYzine PAMOATE 50 MG CAPSULE (FP) PO PRN ×2 (10:23→21:47)
--- NOTE | 2016-08-13 14:00 | PN ---
[facility] Progress Note Note: pt feeling oversedated on methadone 200mg/d requesting dosage decreased to methadone 190mg - will start new dose in am.
[2016-08-13] MEDS: THIAMINE HCL 100 MG TABLET (FP) PO SCH (21:47)
[2016-08-14] MEDS: NICOTINE POLACRILEX 4 MG GUM BUC PRN ×7 (00:28→21:33)
[2016-08-14] MEDS ORDERED: METHADONE HCL 10 MG TABLET ONE (05:49)
[2016-08-14] MEDS ORDERED: METHADONE HCL 5 MG TABLET ONE (05:49)
[2016-08-14] MEDS ORDERED: METHADONE HCL 40 MG DISPERSABLE TABLET ONE (05:50)
[2016-08-14] MEDS ORDERED: METHADONE HCL 40 MG DISPERSABLE TABLET PO SCH ×2 (06:00)
[2016-08-14] MEDS ORDERED: METHADONE 160 MG, METHADONE 30 MG PO SCH (06:00)
[2016-08-14] MEDS: METHADONE 160 MG, METHADONE 30 MG, METHADONE 5 MG PO SCH (06:06)
[2016-08-14] MEDS: NICOTINE 21 MG/24 HOURS TOPICAL PATCH TD SCH (10:17)
[2016-08-14] MEDS: RANITIDINE HCL 150 MG TABLET (FP) PO SCH ×2 (10:17→21:33)
[2016-08-14] MEDS: PRENATAL VITAMINS W/ FOLIC ACID TABLET (FP) PO SCH (10:17)
[2016-08-14] MEDS: hydrOXYzine PAMOATE 50 MG CAPSULE (FP) PO PRN ×2 (10:17→21:33)
[2016-08-14] MEDS: IBUPROFEN 400 MG TABLET (FP) PO PRN (11:03)
[2016-08-14] MEDS: THIAMINE HCL 100 MG TABLET (FP) PO SCH (21:33)
[2016-08-15] MEDS: NICOTINE POLACRILEX 4 MG GUM BUC PRN ×3 (00:29→10:38)
[2016-08-15] MEDS ORDERED: METHADONE HCL 5 MG TABLET ONE (03:26)
[2016-08-15] MEDS ORDERED: METHADONE HCL 10 MG TABLET ONE (03:26)
[2016-08-15] MEDS ORDERED: METHADONE HCL 40 MG DISPERSABLE TABLET ONE (03:27)
[2016-08-15] MEDS: METHADONE 160 MG, METHADONE 30 MG, METHADONE 5 MG PO SCH (06:19)
[2016-08-15 07:07] VITALS: BP 114/60; PULSE 81; TEMP 97.9
[2016-08-15] MEDS: NICOTINE 21 MG/24 HOURS TOPICAL PATCH TD SCH (10:37)
[2016-08-15] MEDS: RANITIDINE HCL 150 MG TABLET (FP) PO SCH (10:37)
[2016-08-15] MEDS: hydrOXYzine PAMOATE 50 MG CAPSULE (FP) PO PRN (10:37)
[2016-08-15] MEDS: PRENATAL VITAMINS W/ FOLIC ACID TABLET (FP) PO SCH (10:37)
--- NOTE | 2016-08-15 13:27 | PN ---
Psychiatric Progress Note Vital Signs: Vital Signs Period Temp Pulse Resp BP Sys/Martin Pulse Ox Last 24 Hr 97.9 F 81 16-18 114/60 Date of Session: 08/15/16 Chief Complaint:: discharge visit ROS: WNL Current Medications: Active Medications Generic Name Dose Route Start Last Admin Trade Name Freq PRN Reason Stop Dose Admin Acetaminophen 650 mg 08/04/16 14:07 08/10/16 21:26 Tylenol - PO 650 mg Q4H PRN Administration FEVER OR PAIN Al Hydroxide/Mg Hydroxide 30 ml 08/04/16 14:07 08/05/16 12:29 Mylanta Oral Suspension - PO 30 ml Q6H PRN Administration DYSPEPSIA Diphenhydramine HCl 50 mg 08/04/16 22:00 Benadryl - PO HSMR1 PRN FOR ITCHING Eucalyptus/Menthol/Phenol/Sorbitol 1 each 08/04/16 14:07 Cepastat Lozenge - MM Q4H PRN SORE THROAT Guaifenesin 10 ml 08/04/16 14:07 Robitussin Dm - PO Q6H PRN COUGH Hydroxyzine Pamoate 50 mg 08/04/16 15:58 08/15/16 10:37 Vistaril - PO 50 mg Q6H PRN Administration ANXIETY Ibuprofen 400 mg 08/04/16 14:07 08/14/16 11:03 Motrin - PO 400 mg Q6H PRN Administration PAIN Loperamide HCl 4 mg 08/04/16 14:07 Imodium - PO Q6H PRN DIARRHEA Magnesium Hydroxide 30 ml 08/04/16 14:07 Milk Of Magnesia - PO DAILY PRN CONSTIPATION Methadone HCl 160 mg/ 195 mg 08/14/16 06:00 08/15/16 06:19 Methadone HCl 30 mg/ Methadone PO 195 mg HCl 5 mg DAILY@0600 VANESSA Administration Nicotine 21 mg 08/05/16 10:00 08/15/16 10:37 Nicoderm Patch - TD 21 mg DAILY VANESSA Administration Nicotine Polacrilex 4 mg 08/04/16 14:07 08/15/16 10:38 Nicorette Gum - BUC 4 mg Q2H PRN Administration NICOTINE REPLACEMENT RX Multivit/Folic Acid/Iron 1 tab 08/05/16 10:00 08/15/16 10:37 Vitamins (Sjr) - PO 1 tab DAILY VANESSA Administration Pseudoephedrine/Triprolidine 1 combo 08/04/16 14:07 Actifed - PO TID PRN NASAL CONGESTION Ranitidine HCl 150 mg 08/08/16 22:00 08/15/16 10:37 Zantac - PO 150 mg BID VANESSA Administration Thiamine HCl 100 mg 08/04/16 22:00 08/14/16 21:33 Vitamin B1 - PO 100 mg HS VANESSA Administration Current Side Effect: No Lab tests ordered: No Lab tests reviewed: Yes Provider note:: Due to some suspicion of the patient using drugs on the unit a Multi-Disciplinary team decided to administer a toxicology on the patient which came back positive for methamphetamine, however he tested negative on admission. Due to the this team has made a decision to discharge patient administratively. Patient was seen and informed about the decision, he was upset and loud. Total face to face time:: 10 Mental Status Exam - Mental Status Exam Alert and Oriented to: Time, Place, Person Cognitive Function: Grossly Intact Patient Appearance: Well Groomed Mood: Angry, Irritable Affect: Mood Congruent Patient Behavior: Cooperative Speech Pattern: Appropriate Voice Loudness: Normal Thought Process: Goal Oriented Thought Disorder: Not Present Hallucinations: Denies Suicidal Ideation: Denies Homicidal Ideation: Denies Insight/Judgement: Fair Sleep: Fair Appetite: Fair Muscle strength/Tone: Normal Gait/Station: Normal Psychiatric Treatment Plan - Problem List (1) Methadone maintenance therapy patient Comment: 200 MG VERIFICAITON PENDING (2) Nicotine dependence Qualifiers: Nicotine product type: cigarettes Substance use status: in withdrawal Qualified Code(s): F17.213 - Nicotine dependence, cigarettes, with withdrawal
== END 2016-08-15 14:00 | disposition home or self-care (01) | DRG 772 ==
LOC: YASAS 12:38 → Y5N 12:40
PROVIDERS: ADMIT Psychiatry & Neurology Psychiatry; ATTEND Psychiatry & Neurology Psychiatry
PROC: HZ42ZZZ Group Counseling for Substance Abuse Treatment, Cognitive-Behavioral (ICD-10-PCS; principal; 2016-08-04)
DX: F13.20 Sedative, hypnotic or anxiolytic dependence, uncomplicated (principal); F11.20 Opioid dependence, uncomplicated; F14.20 Cocaine dependence, uncomplicated; F17.210 Nicotine dependence, cigarettes, uncomplicated
CPT/HCPCS: 36415; 87389